=== PATIENT | female | born 2000 | race Hispanic/Latino ===

== ENCOUNTER 2021-10-21 19:27 | Emergency (ER) | payer MEDICAID ==
[~2021-10-21] VITALS: Ht 160 cm; Wt 68.0 kg
[2021-10-21 19:57] LABS: BASOPHILS % (AUTO) 0.2 % (0.0-5.0); EOSINOPHILS % (AUTO) 0.1 % (0.0-8.0); HEMATOCRIT 32.7 % (36-48); LYMPHOCYTES % (AUTO) 8.3 % (21.0-51.0); MEAN CORPUSCULAR HEMOGLOBIN 28.7 pg (27.0-33.0); MEAN CORPUSCULAR HGB CONC 34.6 g/dL (32.0-36.0); MONOCYTES % (AUTO) 5.2 % (3.0-13.0); NEUTROPHILS % (AUTO) 85.7 % (40.0-77.0); PLATELET COUNT (AUTO) 217 K/uL (130-400); RED BLOOD CELL COUNT(AUTO) 3.94 MIL/uL (4.00-5.50); RED CELL DISTRIBUTION WIDTH 15.7 % (11.0-15.5); WHITE BLOOD COUNT (AUTO) 14.7 K/uL (4.8-10.8)
[2021-10-21] MEDS ORDERED: ACETAMINOPHEN 500 MG TABLET PO ONE (20:00)
[2021-10-21 20:07] LABS: CREATININE 0.5 mg/dL (0.5-1.5); POTASSIUM 3.8 mmol/L (3.5-5.1)
[2021-10-21 20:10] LABS: APPEARANCE,URINE CLEAR (CLEAR); BILIRUBIN,URINE NEGATIVE (NEGATIVE); COLOR,URINE YELLOW (YELLOW); GLUCOSE, URINE (UA) NEGATIVE (NEGATIVE); KETONES,URINE 15 mg/dL (NEGATIVE); LEUKOCYTE ESTERASE ,URINE NEGATIVE (NEGATIVE); NITRATE,URINE NEGATIVE (NEGATIVE); OCCULT BLOOD,URINE NEGATIVE (NEGATIVE); PH,URINE 7.5 (5.0-8.0); PROTEIN,URINE NEGATIVE (NEGATIVE); UROBILINOGEN,URINE 0.2 mg/dL (0.2-1.0)
[2021-10-21 20:21] LABS: BACTERIA,URINE Moderate /HPF (None Seen); SQUAMOUS EPITHELIAL CELL,UR Many /HPF (0-2)
[2021-10-21 20:22] LABS: RBC,URINE 0-1 /HPF (0-1)
[2021-10-21] MEDS ORDERED: CEFTRIAXONE 1G VIAL ONE (20:29)
[2021-10-21] MEDS ORDERED: LIDOCAINE HCL 1% 10 ML VIAL ONE (20:29)
[2021-10-21] MEDS ORDERED: CEFTRIAXONE 1G VIAL IM ONE (20:30)
[2021-10-21 20:32] LABS: ALBUMIN 3.1 g/dL (3.5-5.0); TOTAL PROTEIN, SERUM 7.7 g/dL (6.0-8.3)
[2021-10-21 20:57] VITALS: BP 116/63
[2021-10-21] MEDS ORDERED: CEPH500B PO (21:08)
== END 2021-10-21 21:22 | disposition home or self-care (01) ==
LOC: EDH 19:27
DX: O23.40 Unspecified infection of urinary tract in pregnancy, unspecified trimester (principal); N39.0 Urinary tract infection, site not specified; O26.90 Pregnancy related conditions, unspecified, unspecified trimester; B34.9 Viral infection, unspecified; Z20.822 Contact with and (suspected) exposure to COVID-19; Z3A.00 Weeks of gestation of pregnancy not specified
CPT/HCPCS: 99283; 87635; 80053; 84702; 85025; 87088; 87880; 81001; 36415; 96372; C9803; J0696; J3490

== ENCOUNTER 2022-03-08 11:16 | Observation (INO) | payer BC, MEDICAID ==
[~2022-03-08] VITALS: Ht 162.6 cm; Wt 59.0 kg
[~2022-03-08 11:16] MED LIST: CEPH500B PO
[2022-03-08 11:48] VITALS: BP 126/93
[2022-03-08] MEDS: LACTATED RINGERS 1000ML 1,000 ML IV SCH ×2 (12:40→13:44)
[2022-03-08] MEDS ORDERED: HEPATITIS B VIRUS VACCINE-PF 10 MCG/0.5 ML VIAL IM ONE (12:47)
[2022-03-08] MEDS ORDERED: ONDANSETRON 4MG INJ 8 MG in 0.9%NACL 50ML 50 ML IVP SCH ×2 (13:30→14:00)
[2022-03-08 13:48] LABS: HEMATOCRIT 26.3 % (36-48); MEAN CORPUSCULAR HEMOGLOBIN 21.6 pg (27.0-33.0); MEAN CORPUSCULAR VOLUME 72.1 fL (79-99); PLATELET COUNT (AUTO) 231 K/uL (130-400); RED BLOOD CELL COUNT(AUTO) 3.65 MIL/uL (4.00-5.50); RED CELL DISTRIBUTION WIDTH 17.8 % (11.0-15.5); WHITE BLOOD COUNT (AUTO) 9.8 K/uL (4.8-10.8)
[2022-03-08 14:04] LABS: CREATININE 0.5 mg/dL (0.5-1.5); POTASSIUM 3.9 mmol/L (3.5-5.1)
[2022-03-08 14:11] LABS: ALBUMIN 2.5 g/dL (3.5-5.0)
== END 2022-03-08 15:35 | disposition home or self-care (01) ==
LOC: EDH 11:16 → LDH 11:58
PROVIDERS: ADMIT Obstetrics & Gynecology; ATTEND Obstetrics & Gynecology
DX: O21.2 Late vomiting of pregnancy (principal); O26.893 Other specified pregnancy related conditions, third trimester; R19.7 Diarrhea, unspecified; R10.2 Pelvic and perineal pain; Z3A.36 36 weeks gestation of pregnancy
CPT/HCPCS: 96365; 96361; 82150; 80053; 83690; 85027; 36415; G0378 ×4; G0379; J2405 ×2; J7120; 90743; 96360